=== PATIENT | male | born 1975 | race Caucasian/White ===

== ENCOUNTER 2023-07-30 20:11 | Emergency (ER) | payer BC ==
[~2023-07-30] VITALS: Ht 180.3 cm; Wt 95.3 kg
[2023-07-30 20:11] VITALS: BP 158/96; PULSE 81; RESP 20; TEMP 98.2; O2SAT 96
[2023-07-30 20:58] LABS: BASOPHIL % 0.2 % (0.0-0.2); EOSINOPHIL # 0.1 10^3/uL (0.0-0.2); EOSINOPHIL % 0.9 % (0.0-5.0); HEMATOCRIT(ML) 42.3 % (37.0-53.0); HEMOGLOBIN 14.1 g/dL (13.9-16.3); LYMPHOCYTES # 2.54 10^3/uL1 (1.0-4.8); LYMPHOCYTES % 15.9 % (24.0-44.0); MEAN CORP HGB 28.7 pg (26-34); MEAN CORP HGB CONCENTRATION 33.3 g/dL (33-36.5); MEAN CORP VOLUME 86.2 fL (78-100); MONOCYTES # 1.1 10^3/uL (0.3-0.8); MONOCYTES % 6.6 % (5.0-12.0); NEUTROPHIL # 12.2 10^3/uL (1.8-7.7); NEUTROPHILS % 76.3 % (41.0-85.0); PLATELET COUNT 337 10^3/uL (150-400); RED BLOOD CELL 4.91 10^6/uL (4.50-5.90); RED CELL DISTRIBUTION WIDTH 12.9 % (11.5-14.5)
[2023-07-30 21:04] LABS: +ADD MANUAL DIFF(NO CHRG) NO
[2023-07-30 21:15] VITALS: BP 185/96; PULSE 76; RESP 18; O2SAT 95
[2023-07-30 21:19] LABS: BILIRUBIN,URINE NEGATIVE (NEGATIVE); LEUKOCYTE ESTERASE ,URINE NEGATIVE (NEGATIVE); NITRATE,URINE NEGATIVE (NEGATIVE); UROBILINOGEN,URINE 0.2 E.U./dL (0.2)
[2023-07-30 21:30] LABS: ALBUMIN(ML) 3.4 g/dL (3.4-5.0); ALBUMIN/GLOBULIN RATIO 0.918; BUN/CREATININE RATIO 13.88 (10.0-20.0); CALCIUM 9.7 mg/dL (8.4-10.5); CARBON DIOXIDE 30.2 mmol/L (20.0-32); CREATININE SERUM 1.08 mg/dL (0.59-1.40); EST GFR, NON-AA 72.7 (>/=60); POTASSIUM 3.2 mmol/L (3.6-5.2)
[2023-07-30 21:41] LABS: APPEARANCE,URINE CLOUDY; UA COLOR YELLOW
[2023-07-30 22:05] VITALS: BP 170/88; PULSE 77; RESP 18; O2SAT 97
== END 2023-07-30 22:10 | disposition home or self-care (01) ==
LOC: ER 20:11
DX: S00.83XA Contusion of other part of head, initial encounter (principal); R10.30 Lower abdominal pain, unspecified; R55 Syncope and collapse; Z90.49 Acquired absence of other specified parts of digestive tract; X58.XXXA Exposure to other specified factors, initial encounter; Y93.89 Activity, other specified; Y92.89 Other specified places as the place of occurrence of the external cause; Y99.8 Other external cause status
CPT/HCPCS: 99285; 70450; 71045; 87086; 74177; 80053; 85025; 36415; 84484; 81001; 82150; 87186; 83690; 87077; 93005; Q9965